=== PATIENT | male | born 1970 | race Two or more races ===

== ENCOUNTER 2024-03-06 23:24 | Emergency (ER) | payer MEDICAID ==
[~2024-03-06] VITALS: Ht 175.3 cm; Wt 90.9 kg
[2024-03-06 23:37] VITALS: BP 160/94; PULSE 90; RESP 18; TEMP 98.9; O2SAT 97
== END 2024-03-07 00:11 | disposition left against medical advice (07) ==
LOC: EMS 23:24
DX: A64 Unspecified sexually transmitted disease (principal); Z53.21 Procedure and treatment not carried out due to patient leaving prior to being seen by health care provider